=== PATIENT | male | born 1945 | race Caucasian/White ===

== ENCOUNTER 2020-05-08 15:00 | Emergency (ER) | payer MEDICARE, OTHER ==
[2020-05-08] MEDS ORDERED: Famotidine 20 MG/2 ML SDV IVPUSH PRN (15:41)
[2020-05-08] MEDS ORDERED: EPINEPHrine 1:10,000 1 MG/10 ML Syringe IM PRN (15:41)
[2020-05-08] MEDS ORDERED: methylPREDNISolone Sodium Succinate 125 MG/2 ML SDV IVPUSH PRN (15:41)
[2020-05-08] MEDS ORDERED: diphenhydrAMINE 50 MG/ML SDV IVPUSH PRN (15:41)
[2020-05-08] MEDS ORDERED: Sodium Chloride 0.9% 10 ML Syringe FLUSH SCH (15:45)
--- NOTE | 2020-05-08 16:25 | EDM.PDOC ---
ED HPI GENERAL MEDICAL PROBLEM - General Chief Complaint: Respiratory Problem Stated Complaint: COVID +/ LOW O2 Time Seen by Provider: 05/08/20 15:23 Source of Information: Reports: Patient, RN Notes Reviewed History Limitations: Reports: No Limitations - History of Present Illness INITIAL COMMENTS - FREE TEXT/NARRATIVE: Patient is a 74-year-old male presenting to the emergency department with request of receiving monoclonal antibodies. He states 7 days ago he developed a mild cough with occasional headaches. He was tested at the [place] [facility] today and tested positive for Covid. His is also positive for Covid. He denies any fever, chills, shortness of breath, nausea, vomiting, or diarrhea. He has a past medical history significant for adrenal insufficiency for which she takes prednisone. - Related Data Allergies Allergy/AdvReac Type Severity Reaction Status Date / Time Penicillins Allergy Rash Verified 05/08/20 15:23 Past Medical History HEENT History: Reports: Hard of Hearing, Impaired Vision Gastrointestinal History: Reports: Bowel Obstruction, Diverticulosis Other Immunologic History: adrenal insufficiency - Infectious Disease History Infectious Disease History: Reports: Novel Coronavirus - Past Surgical History Other GI Surgeries/Procedures: portion of bowel removed Social & Family History - Tobacco Use Tobacco Use Status *Q: Never Tobacco User ED ROS GENERAL - Review of Systems Review Of Systems: See Below Constitutional: Reports: No Symptoms. Denies: Fever, Chills, Weakness HEENT: Reports: No Symptoms Respiratory: Reports: Cough. Denies: Shortness of Breath, Wheezing, Pleuritic Chest Pain Cardiovascular: Reports: No Symptoms Endocrine: Reports: No Symptoms GI/Abdominal: Reports: No Symptoms : Reports: No Symptoms Musculoskeletal: Reports: No Symptoms Skin: Reports: No Symptoms Neurological: Reports: Headache (Occasional) Psychiatric: Reports: No Symptoms Hematologic/Lymphatic: Reports: No Symptoms Immunologic: Reports: No Symptoms ED EXAM, GENERAL - Physical Exam Exam: See Below General Appearance: Alert, WD/WN, No Apparent Distress Respiratory/Chest: No Respiratory Distress, Lungs Clear, Normal Breath Sounds, No Accessory Muscle Use, Chest Non-Tender Cardiovascular: Normal Peripheral Pulses, Regular Rate, Rhythm, No Edema, No Gallop, No JVD, No Murmur, No Rub GI/Abdominal: Normal Bowel Sounds, Soft, Non-Tender, No Organomegaly, No Distention, No Abnormal Bruit, No Mass Neurological: Alert, Oriented, CN II-XII Intact, Normal Cognition, Normal Gait, Normal Reflexes, No Motor/Sensory Deficits Psychiatric: Normal Affect, Normal Mood Skin Exam: Warm, Dry, Intact, Normal Color, No Rash Course - Vital Signs Last Recorded V/S: Last Vital Signs Temp 97.9 F 05/08/20 15:19 Pulse 88 05/08/20 15:19 Resp 16 05/08/20 15:19 BP 139/84 05/08/20 15:19 Pulse Ox 98 05/08/20 15:19 - Orders/Labs/Meds Orders: Active Orders 24 hr Category Date Time Status Vital Signs [RC] Q15M Care 05/08/20 15:42 Active Chest 1V Frontal [CR] Stat Exams 05/08/20 15:41 Taken EPINEPHrine [EPINEPHrine 1:10,000] Med 05/08/20 15:41 Active 0.3 mg IM ONETIME PRN Famotidine [Pepcid] Med 05/08/20 15:41 Active 20 mg IVPUSH ONETIME PRN Sodium Chloride 0.9% [Saline Flush] Med 05/08/20 15:45 Active 30 ml FLUSH ASDIRECTED diphenhydrAMINE [Benadryl] Med 05/08/20 15:41 Active 50 mg IVPUSH ONETIME PRN methylPREDNISolone Sod Succ [Solu-MEDROL] Med 05/08/20 15:41 Active 125 mg IVPUSH ONETIME PRN Medication Orders Diphenhydramine HCl (Benadryl) 50 mg IVPUSH ONETIME PRN PRN Reason: hypersensitivity reaction Epinephrine HCl (Epinephrine 1:10,000) 0.3 mg IM ONETIME PRN PRN Reason: hypersensitivity reaction Famotidine (Pepcid) 20 mg IVPUSH ONETIME PRN PRN Reason: hypersensitivity reaction Methylprednisolone Sodium Succinate (Solu-Medrol) 125 mg IVPUSH ONETIME PRN PRN Reason: hypersensitivity reaction Sodium Chloride (Saline Flush) 30 ml FLUSH ASDIRECTED [facility] Last Admin: 05/08/20 17:50 Dose: 30 ml Documented by: LIZZ Labs: Laboratory Tests 05/08/20 05/08/20 Range/Units 16:15 16:15 WBC 2.71 L (4.23-9.07) K/mm3 RBC 4.73 (4.63-6.08) M/mm3 Hgb 15.2 (13.7-17.5) gm/dl Hct 44.7 (40.1-51.0) % MCV 94.5 H (79.0-92.2) fl MCH 32.1 (25.7-32.2) pg MCHC 34.0 (32.2-35.5) g/dl RDW Std Deviation 51.0 H (35.1-43.9) fL Plt Count 162 L (163-337) K/mm3 MPV 8.5 L (9.4-12.3) fl Neut % (Auto) 78.6 H (34.0-67.9) % Lymph % (Auto) 10.7 L (21.8-53.1) % Green % (Auto) 9.6 (5.3-12.2) % Eos % (Auto) 0 L (0.8-7.0) Baso % (Auto) 0.0 L (0.1-1.2) % Neut # (Auto) 2.13 (1.78-5.38) K/mm3 Lymph # (Auto) 0.29 L (1.32-3.57) K/mm3 Green # (Auto) 0.26 L (0.30-0.82) K/mm3 Eos # (Auto) 0.00 L (0.04-0.54) K/mm3 Baso # (Auto) 0.00 L (0.01-0.08) K/mm3 Manual Slide Review Abnormal smear Sodium 140 (136-145) mEq/L Potassium 2.9 L (3.5-5.1) mEq/L Chloride 100 (98-107) mEq/L Carbon Dioxide 31 (21-32) mEq/L Anion Gap 11.9 (5-15) BUN 27 H (7-18) mg/dL Creatinine 1.3 (0.7-1.3) mg/dL Est Cr Clr Drug Dosing TNP Estimated GFR (MDRD) 54 (>60) mL/min BUN/Creatinine Ratio 20.8 H (14-18) Glucose 89 (83-115) mg/dL Calcium 9.4 (8.5-10.1) mg/dL Total Bilirubin 0.3 (0.2-1.0) mg/dL AST 24 (15-37) U/L ALT 33 (16-63) U/L Alkaline Phosphatase 87 (46-116) U/L Troponin I < 0.017 (0.00-0.056) ng/mL C-Reactive Protein 0.5 (<1.0) mg/dL Total Protein 7.0 (6.4-8.2) g/dl Albumin 3.7 (3.4-5.0) g/dl Globulin 3.3 gm/dL Albumin/Globulin Ratio 1.1 (1-2) Meds: Medications Generic Name Dose Route Start Last Admin Trade Name Freq PRN Reason Stop Dose Admin Diphenhydramine HCl 50 mg 05/08/20 15:41 Benadryl IVPUSH ONETIME PRN hypersensitivity reaction Epinephrine HCl 0.3 mg 05/08/20 15:41 Epinephrine 1:10,000 IM ONETIME PRN hypersensitivity reaction Famotidine 20 mg 05/08/20 15:41 Pepcid IVPUSH ONETIME PRN hypersensitivity reaction Methylprednisolone Sodium Succinate 125 mg 05/08/20 15:41 Solu-Medrol IVPUSH ONETIME PRN hypersensitivity reaction Sodium Chloride 30 ml 05/08/20 15:45 05/08/20 17:50 Saline Flush FLUSH 30 ml ASDIRECTED ABHAY Administration Discontinued Medications Generic Name Dose Route Start Last Admin Trade Name Freq PRN Reason Stop Dose Admin Bamlanivimab 700 mg/ Sodium 270 mls @ 270 mls/hr 05/08/20 15:41 05/08/20 16:31 Chloride IV 05/08/20 15:42 270 mls/hr ONETIME ONE Administration Protocol - Re-Assessments/Exams Free Text/Narrative Re-Assessment/Exam: Patient is a 74-year-old male presenting to the emergency department after bibi gnosis with Covid with a request to receive monoclonal antibodies. He states he developed symptoms about 7 days ago. He has a mild cough and occasional headache. Denies any shortness of breath. Oxygen saturation was 98% on room air. He has not been febrile and has not had any nausea vomiting or diarrhea. I have ordered IV insertion, CBC, CMP, CRP, and 1 view chest x-ray. I spoke with the patient to provide information about bamlanivimab treatment I offered them the ``Patient and Caregiver IVAN Asifivimad Fact Sheet to read and review I stated the drug has been approved by an emergency use authorization (EUA) process and has not fully been FDA reviewed or approved The patient meets the EUA requirements I discussed there are other potential treatment options that are currently not FDA approved to treat COVID-19. Offered opportunity to ask questions and all questions were answered Patient voiced understanding and agreed to proceed with treatment. 05/08/20 18:51 Chest x-ray shows no acute abnormalities. Hematology shows a WBC slightly low at 2.71, potassium low at 2.9. Troponin and CRP are both negative. Patient has completed the Bamlanivimad infusion with no adverse effects and has completed the 1 hour waiting period after. I will give him potassium 40 mEq orally. Discussed return precautions. Discharge instructions as documented. Departure - Departure Time of Disposition: 18:51 Disposition: Home, Self-Care 01 Condition: Good Clinical Impression: COVID-19, Hypokalemia - Discharge Information *PRESCRIPTION DRUG MONITORING PROGRAM REVIEWED*: No *COPY OF PRESCRIPTION DRUG MONITORING REPORT IN PATIENT LEON: No Instructions: COVID-19 Frequently Asked Questions, COVID-19 Referrals: PCP,None [Primary Care Provider] - Forms: ED Department Discharge Additional Instructions: You were seen in the emergency department today for monoclonal antibodies after a Covid diagnosis today. While in the ER, you received Bamlanivimad. This is a monoclonal antibody intended to prevent your symptoms from worsening. Work-up in the ER also included blood work as well as a chest x-ray. Your chest x-ray was normal. Blood work showed that your potassium was low, therefore you received a potassium supplement in the ER. Recommend that you continue to monitor your oxygen saturations at home. If your oxygen saturation is below 90%, this indicates that you are hypoxic and should return to the emergency department. If you experience any other new or worsening symptoms of concern, please do not hesitate to return to the emergency department. Sepsis Event Note (ED) - Evaluation Sepsis Screening Result: No Definite Risk - Focused Exam Vital Signs: Vital Signs Temp Pulse Resp BP Pulse Ox 05/08/20 15:19 97.9 F 88 16 139/84 98 - My Orders Last 24 Hours: My Active Orders 05/08/20 15:41 Chest 1V Frontal [CR] Stat EPINEPHrine [EPINEPHrine 1:10,000] 0.3 mg IM ONETIME PRN Famotidine [Pepcid] 20 mg IVPUSH ONETIME PRN diphenhydrAMINE [Benadryl] 50 mg IVPUSH ONETIME PRN methylPREDNISolone Sod Succ [Solu-MEDROL] 125 mg IVPUSH ONETIME PRN 05/08/20 15:42 Vital Signs [RC] Q15M 05/08/20 15:45 Sodium Chloride 0.9% [Saline Flush] 30 ml FLUSH ASDIRECTED - Assessment/Plan Last 24 Hours: My Active Orders 05/08/20 15:41 Chest 1V Frontal [CR] Stat EPINEPHrine [EPINEPHrine 1:10,000] 0.3 mg IM ONETIME PRN Famotidine [Pepcid] 20 mg IVPUSH ONETIME PRN diphenhydrAMINE [Benadryl] 50 mg IVPUSH ONETIME PRN methylPREDNISolone Sod Succ [Solu-MEDROL] 125 mg IVPUSH ONETIME PRN 05/08/20 15:42 Vital Signs [RC] Q15M 05/08/20 15:45 Sodium Chloride 0.9% [Saline Flush] 30 ml FLUSH ASDIRECTED
[2020-05-08] MEDS ORDERED: Potassium Chloride 20 MEQ Tab.ER PO ONE (18:47)
--- NOTE | 2020-05-09 10:23 | CR ---
Chest: Portable view of the chest was obtained. Comparison: No prior chest imaging is available. Heart size and mediastinum are normal. Lungs appear clear with no acute parenchymal change. Bony structures are grossly intact. Impression: 1. Nothing acute is definitely appreciated on portable chest x-ray. Diagnostic code #1
== END 2020-05-08 19:09 | disposition home or self-care (01) ==
LOC: JD.ED 15:00
DX: U07.1 COVID-19 (principal); E87.6 Hypokalemia; Z88.0 Allergy status to penicillin
CPT/HCPCS: 36415; 71045; 80053; 84484; 85025; 86140; 96365; 99283; A9270; J7050; 99284

== ENCOUNTER 2024-07-22 08:10 | Emergency (ER) | payer MEDICARE, OTHER ==
[2024-07-22] MEDS: Albuterol/Ipratropium 3.0-0.5 MG/3 ML Neb Soln NEB ONE (09:14)
== END 2024-07-22 11:05 | disposition home or self-care (01) ==
LOC: JD.ED 08:10
DX: J44.1 Chronic obstructive pulmonary disease with (acute) exacerbation (principal); Z86.16 Personal history of COVID-19; Z79.899 Other long term (current) drug therapy; Z79.52 Long term (current) use of systemic steroids; Z88.0 Allergy status to penicillin
CPT/HCPCS: 71045; 71045-26; 94640; 99283; J7620-GY

== ENCOUNTER 2024-11-08 07:47 | Inpatient (IN) | payer MEDICARE, OTHER ==
[2024-11-08] MEDS: Ondansetron 4 MG/2 ML SDV IVPUSH ONE ×2 (08:26)
[2024-11-08 08:50] LABS: BASOPHILS PERCENT AUTO 0.1 % (0.0-1.0); EOSINOPHILS PERCENT AUTO 0.1 % (0.0-6.0); HEMATOCRIT 46.9 % (42.0-52.0); HEMOGLOBIN 16.1 gm/dl (14.0-18.0); IMMATURE GRAN ABSOLUTE AUTO 0.06 K/mm3 (0.00-0.05); IMMATURE GRAN PERCENT AUTO 0.5 % (0.0-0.4); LYMPHOCYTES ABSOLUTE AUTO 0.5 K/mm3 (1.0-4.8); LYMPHOCYTES PERCENT AUTO 4.5 % (24.0-44.0); MEAN CORPUSCULAR HEMOGLOBIN 31.9 pg (28.0-32.0); MEAN CORPUSCULAR HGB CONC 34.3 g/dl (32.0-36.0); MEAN CORPUSCULAR VOLUME 92.9 fl (83.0-99.0); MEAN PLATELET VOLUME 9.1 fl (9.4-12.4); MONOCYTES ABSOLUTE AUTO 0.5 K/mm3 (0.0-0.8); MONOCYTES PERCENT AUTO 4.5 % (0.0-8.0); NEUTROPHILS ABSOLUTE AUTO 10.5 K/mm3 (1.8-7.7); NEUTROPHILS PERCENT AUTO 90.3 % (41.0-71.0); PLATELET COUNT,PLT 207 K/mm3 (150-400); RED BLOOD CELL COUNT 5.05 M/mm3 (4.52-5.90); WHITE BLOOD CELL COUNT,WBC 11.59 K/mm3 (3.9-11.3)
[2024-11-08 09:00] LABS: ALBUMIN 3.5 g/dl (3.4-5.0); ANION GAP 12.8 (5-15); BILIRUBIN TOTAL 0.6 mg/dL (0.2-1.0); CALCIUM 9.5 mg/dL (8.5-10.1); CREATININE 1.8 mg/dL (0.7-1.3); EST CRCL DRUG DOSING (CG) 29.54 mL/min; POTASSIUM,K 3.8 mEq/L (3.5-5.1)
[2024-11-08 09:04] LABS: INR 0.97; PROTHROMBIN TIME 10.3 SECONDS (9.7-12.0)
[2024-11-08] MEDS: fentaNYL 100 MCG/2 ML SDV IVPUSH ONE ×2 (09:07→09:08)
[2024-11-08] MEDS: Sodium Chloride 0.9% 1,000 ML IV ONE (09:08)
[2024-11-08 09:20] LABS: SLIDE REVIEW ABNORMAL SMEAR
[2024-11-08] MEDS: Hydrocortisone Sodium Succinate 100 MG/2 ML SDV IV ONE (09:24)
[2024-11-08] MEDS: Iopamidol 755 Mg/ML 100 ML Bottle IVPUSH ONE (10:04)
[2024-11-08] MEDS: Sodium Chloride 0.9% 10 ML Syringe FLUSH ONE (10:04)
[2024-11-08] MEDS: Benzocaine 20% Topical Spray UD MUCMEM ONE (12:40)
[2024-11-08] MEDS ORDERED: Morphine 2 MG/ML SYRINGE IVPUSH PRN (13:40)
[2024-11-08] MEDS: Lactated Ringers 1,000 ML IV SCH (14:53)
[2024-11-08] MEDS ORDERED: Labetalol 100 MG/20 ML MDV IVPUSH PRN (17:46)
[2024-11-08] MEDS: hydrALAZINE 20 MG/ML SDV IVPUSH PRN (18:07)
[2024-11-08] MEDS: Morphine 4 MG/ML Syringe IVPUSH PRN (18:28)
[2024-11-08] MEDS: Ondansetron 4 MG/2 ML SDV IVPUSH PRN (18:33)
[2024-11-08] MEDS: Famotidine 20 MG/2 ML SDV IVPUSH SCH (21:28)
[2024-11-09 05:55] LABS: BASOPHILS PERCENT AUTO 0.2 % (0.0-1.0); EOSINOPHILS PERCENT AUTO 0.2 % (0.0-6.0); HEMATOCRIT 43.5 % (42.0-52.0); HEMOGLOBIN 14.7 gm/dl (14.0-18.0); IMMATURE GRAN ABSOLUTE AUTO 0.05 K/mm3 (0.00-0.05); IMMATURE GRAN PERCENT AUTO 0.5 % (0.0-0.4); LYMPHOCYTES ABSOLUTE AUTO 0.5 K/mm3 (1.0-4.8); LYMPHOCYTES PERCENT AUTO 4.8 % (24.0-44.0); MEAN CORPUSCULAR HEMOGLOBIN 31.6 pg (28.0-32.0); MEAN CORPUSCULAR HGB CONC 33.8 g/dl (32.0-36.0); MEAN CORPUSCULAR VOLUME 93.5 fl (83.0-99.0); MEAN PLATELET VOLUME 9.6 fl (9.4-12.4); MONOCYTES ABSOLUTE AUTO 0.6 K/mm3 (0.0-0.8); MONOCYTES PERCENT AUTO 5.3 % (0.0-8.0); NEUTROPHILS ABSOLUTE AUTO 9.4 K/mm3 (1.8-7.7); PLATELET COUNT,PLT 170 K/mm3 (150-400); RED BLOOD CELL COUNT 4.65 M/mm3 (4.52-5.90); WHITE BLOOD CELL COUNT,WBC 10.52 K/mm3 (3.9-11.3)
[2024-11-09 06:19] LABS: ANION GAP 10.7 (5-15); BUN/CREATININE RATIO 19.4 (14-18); CALCIUM 8.4 mg/dL (8.5-10.1); CREATININE 1.6 mg/dL (0.7-1.3); EST CRCL DRUG DOSING (CG) 26.04 mL/min; POTASSIUM,K 3.7 mEq/L (3.5-5.1)
[2024-11-09 06:25] LABS: MAGNESIUM 1.6 mg/dL (1.8-2.4); PHOSPHORUS 3.6 mg/dL (2.6-4.7)
[2024-11-09] MEDS: Hydrocortisone Sodium Succinate 100 MG/2 ML SDV IVPUSH SCH (08:13)
[2024-11-09] MEDS: Magnesium Sulfate 2 GM/50 mL 2 GM in Premix Bag 1 BAG IV ONE (09:01)
[2024-11-09] MEDS: Heparin Sodium 5,000 Units/ML Vial SUBCUT SCH (20:12)
[2024-11-10] MEDS: Dextrose 5%-0.45% NaCl 1,000 ML IV SCH (08:56)
== END 2024-11-11 08:45 | disposition home or self-care (01) | DRG 389 ==
LOC: JD.ED 07:47 → JD.MS 13:35
PROVIDERS: ADMIT Surgery; ATTEND Surgery
PROC: 0D9670Z Drainage of Stomach with Drainage Device, Via Natural or Artificial Opening (ICD-10-PCS; principal; 2024-11-08)
DX: K56.600 Partial intestinal obstruction, unspecified as to cause (principal); E27.40 Unspecified adrenocortical insufficiency; J43.9 Emphysema, unspecified; K50.90 Crohn's disease, unspecified, without complications; N17.9 Acute kidney failure, unspecified; I10 Essential (primary) hypertension; H91.90 Unspecified hearing loss, unspecified ear; H54.7 Unspecified visual loss; E78.00 Pure hypercholesterolemia, unspecified; J43.2 Centrilobular emphysema; E83.42 Hypomagnesemia; K76.9 Liver disease, unspecified; K40.90 Unilateral inguinal hernia, without obstruction or gangrene, not specified as recurrent; E89.3 Postprocedural hypopituitarism; M81.0 Age-related osteoporosis without current pathological fracture; G43.909 Migraine, unspecified, not intractable, without status migrainosus; E66.9 Obesity, unspecified; Z88.0 Allergy status to penicillin; Z86.16 Personal history of COVID-19; Z87.891 Personal history of nicotine dependence; Z86.39 Personal history of other endocrine, nutritional and metabolic disease; Z90.49 Acquired absence of other specified parts of digestive tract; Z79.899 Other long term (current) drug therapy; Z68.25 Body mass index [BMI] 25.0-25.9, adult
CPT/HCPCS: 36415; 71045; 71045-26; 74018; 74018-26; 74019; 74019-26; 74177; 74177-26; 80048; 80053; 83735; 84100; 85025; 85610; 85730; 96361; 96374; 96375; 99222; 99231; 99238; 99285; 99285-25; J0360; J1644; J1720; J2270; J2405; J3010; J3475; J7030; J7120; Q9967

== ENCOUNTER 2025-01-26 10:42 | Emergency (ER) | payer MEDICARE, OTHER ==
[2025-01-26] MEDS ORDERED: Sodium Chloride 0.9% 10 ML Syringe FLUSH PRN (11:05)
[2025-01-26 11:46] LABS: BASOPHILS ABSOLUTE AUTO 0.0 K/mm3 (0.0-0.2); BASOPHILS PERCENT AUTO 0.5 % (0.0-1.0); EOSINOPHILS ABSOLUTE AUTO 0.0 K/mm3 (0.0-0.4); EOSINOPHILS PERCENT AUTO 0.0 % (0.0-6.0); IMMATURE GRAN ABSOLUTE AUTO 0.07 K/mm3 (0.00-0.05); IMMATURE GRAN PERCENT AUTO 1.1 % (0.0-0.4); LYMPHOCYTES ABSOLUTE AUTO 0.1 K/mm3 (1.0-4.8); LYMPHOCYTES PERCENT AUTO 1.8 % (24.0-44.0); MEAN PLATELET VOLUME 9.0 fl (9.4-12.4); MONOCYTES ABSOLUTE AUTO 0.2 K/mm3 (0.0-0.8); MONOCYTES PERCENT AUTO 3.0 % (0.0-8.0); NEUTROPHILS ABSOLUTE AUTO 6.2 K/mm3 (1.8-7.7); NEUTROPHILS PERCENT AUTO 93.6 % (41.0-71.0); NRBC ABSOLUTE 0.00 (0.00-0.02); NRBC PERCENT 0.0 % (0.0-0.2); PLATELET COUNT,PLT 135 K/mm3 (150-400); RED BLOOD CELL COUNT 4.20 M/mm3 (4.52-5.90); WHITE BLOOD CELL COUNT,WBC 6.62 K/mm3 (3.9-11.3)
[2025-01-26 12:02] LABS: APPEARANCE,URINE CLEAR (Clear); GLUCOSE,URINE NEGATIVE (Negative); OCCULT BLOOD,URINE 2+ (Negative)
[2025-01-26 12:25] LABS: EPITHELIAL CELLS,URINE 0-5 /hpf (0-5)
[2025-01-26 12:26] LABS: A/G RATIO 1.0 (1-2); ALANINE AMINOTRANSFERASE,ALT 22.0 U/L (16-63); ASPARTATE AMNIOTRANSFERASE,AST 25.0 U/L (15-37); BILIRUBIN TOTAL 0.9 mg/dL (0.2-1.0); BLOOD UREA NITROGEN,BUN 19.0 mg/dL (7-18); CARBON DIOXIDE,CO2 28.0 mEq/L (21-32); CHLORIDE,CL 93.0 mEq/L (98-107); CREATININE 1.3 mg/dL (0.7-1.3); EST CRCL DRUG DOSING (CG) 40.9 mL/min; ESTIMATED GFR 56.0 mL/min (>60); GLUCOSE RANDOM 138.0 mg/dL (70-99); POTASSIUM,K 3.2 mEq/L (3.5-5.1); PROTEIN TOTAL,TP 6.4 g/dl (6.4-8.2); SODIUM,NA 130.0 mEq/L (136-145); TROPONIN I HIGH SENSITIVITY 10.0 pg/mL (<=76)
[2025-01-26] MEDS: Potassium Chloride 20 MEQ Tab.ER PO ONE (13:48)
== END 2025-01-26 13:30 | disposition home or self-care (01) ==
LOC: JD.ED 10:42
DX: R42 Dizziness and giddiness (principal); R53.83 Other fatigue; I10 Essential (primary) hypertension; E66.9 Obesity, unspecified; Z88.0 Allergy status to penicillin; Z79.899 Other long term (current) drug therapy; Z86.16 Personal history of COVID-19; Z87.891 Personal history of nicotine dependence
CPT/HCPCS: 36415; 71045; 80053; 81001; 83735; 83880; 84484; 85025; 93005; 96360; 99284; A9270; J7030; 93010; 99283